=== PATIENT | male | born 1945 | race Two or more races ===

== ENCOUNTER 2017-12-03 10:17 | Inpatient (IN) | payer MEDICARE, MEDICAID ==
[~2017-12-03] VITALS: Ht 175.3 cm; Wt 61.5 kg
[~2017-12-03 10:17] MED LIST: ASPI-231 PO; BENA10TA9 PO; CLOP75TA41 PO; HYDR-2595 PO; METO25TA62 PO; ROSU5TAB5 PO
[2017-12-03 11:43] LABS: Basophils # (auto) 0 uL; Eosinophils # (auto) 0 uL; Eosinophils % (auto) 0.1 % (0.0-7.0); Hematocrit 24.6 % (41.0-53.0); Lymphocytes # (auto) 0.3 uL; Red Blood Cells 2.33 10^6/uL (4.5-5.90); White Blood Cell 8.4 10^3/uL (4.4-10.8)
[2017-12-03 11:44] LABS: Basophils % (auto) 0.2 % (0.0-2.0); Hemoglobin 8.2 g/dL (13.5-17.5); Lymphocytes % (auto) 3.1 % (10.0-50.0); Mean Corpuscular Hemoglobin 35.1 pg (28.0-32.0); Mean Corpuscular Hgb Conc. 33.2 g/dL (32.0-36.0); Mean Corpuscular Volume 105.6 fL (80.0-100.0); Monocytes # (auto) 0.4 uL; Monocytes % (auto) 5.2 % (0.0-12.0); Neutrophils # (auto) 7.7 uL; Neutrophils % (auto) 91.4 % (37.0-80.0); Nucleated Red Blood Cells % 0.1 %; Platelet Count (auto) 182 10^3/uL (140-450); Red Cell Distribution Width 18.3 % (11.8-14.3)
[2017-12-03 12:02] LABS: INR 1.05 (0.9-1.15); Partial Thromboplastin Time 30.3 sec (22.64-33.71); Prothrombin Time 11.4 sec (9.37-12.3)
[2017-12-03 12:13] LABS: Albumin 2.3 g/dL (3.4-5.0); BUN/Creatinine Ratio 20.3; Bilirubin, Total 0.6 mg/dL (0.2-1.0); Calcium 8.3 mg/dL (8.5-10.1); Potassium 3.7 mmol/L (3.5-5.1); Total Protein 6.4 g/dL (6.4-8.2)
[2017-12-03] MEDS ORDERED: MORPHINE SULF INJ 2 MG/ML SYRINGE 1ML IV ONE (14:45)
[2017-12-03] MEDS ORDERED: ONDANSETRON HCL 4 MG/2 ML VIAL IV ONE (14:45)
[2017-12-03] MEDS ORDERED: MORPHINE SULF INJ 2 MG/ML SYRINGE 1ML IV PRN (17:00)
[2017-12-03] MEDS ORDERED: NITROGLYCERIN 0.4 MG SL TAB SL PRN (17:00)
[2017-12-03] MEDS ORDERED: EPOETIN ALFA 10,000 UNIT/1 ML VIAL SC ONE (17:30)
[2017-12-03] MEDS: HYDROcodone-ACET 10/325MG TAB PO PRN ×2 (17:50→23:50)
[2017-12-03 17:57] LABS: Urine Bacteria NONE SEEN /hpf (None Seen); Urine Blood 1+ /uL (Negative); Urine Mucus FEW (None Seen); Urine Specific Gravity 1.028 (1.001-1.035); Urine WBC 1 /hpf (0 - 3)
[2017-12-03] MEDS: BOOST 8 ounces PO SCH (18:30)
[2017-12-03 22:00] VITALS: BP 102/56
[2017-12-03] MEDS: MEGESTROL ACETATE 20 MG TAB PO SCH (22:11)
[2017-12-03] MEDS: ATORVASTATIN 20 MG TAB PO SCH (22:11)
[2017-12-03 22:55] VITALS: BP 108/56
[2017-12-03 23:05] VITALS: BP 114/64
[2017-12-03 23:19] VITALS: BP 114/64
[2017-12-03 23:58] VITALS: BP 117/54
[2017-12-04] VITALS (15 sets, daily range): BP systolic 98–124; BP diastolic 51–78
[2017-12-04] MEDS: HYDROcodone-ACET 10/325MG TAB PO PRN ×2 (05:53→17:12)
[2017-12-04 08:31] LABS: Basophils # (auto) 0 uL; Basophils % (auto) 0.4 % (0.0-2.0); Eosinophils # (auto) 0 uL; Eosinophils % (auto) 0.5 % (0.0-7.0); Hemoglobin 8.3 g/dL (13.5-17.5); Lymphocytes # (auto) 0.3 uL; Monocytes # (auto) 0.3 uL; Monocytes % (auto) 3.9 % (0.0-12.0)
[2017-12-04 08:33] LABS: Lymphocytes % (auto) 4.3 % (10.0-50.0); Mean Corpuscular Hemoglobin 34.3 pg (28.0-32.0); Mean Corpuscular Hgb Conc. 33.2 g/dL (32.0-36.0); Mean Corpuscular Volume 103.5 fL (80.0-100.0); Neutrophils # (auto) 7.3 uL; Neutrophils % (auto) 90.9 % (37.0-80.0); Platelet Count (auto) 182 10^3/uL (140-450); Red Blood Cells 2.42 10^6/uL (4.5-5.90); White Blood Cell 8.1 10^3/uL (4.4-10.8)
[2017-12-04 08:43] LABS: Red Cell Distribution Width 20.1 % (11.8-14.3)
[2017-12-04] MEDS: BOOST 8 ounces PO SCH ×3 (09:04→18:00)
[2017-12-04] MEDS: MEGESTROL ACETATE 20 MG TAB PO SCH ×2 (09:31→22:20)
[2017-12-04] MEDS: ASPirin-EC 81 mg tab PO SCH (09:31)
[2017-12-04] MEDS: CLOPIDOGREL BISULFATE 75 MG TAB PO SCH (09:31)
[2017-12-04] MEDS: METOPROLOL SUCCINATE XL 50 MG TAB PO SCH (09:32)
[2017-12-04] MEDS: BENAZEPRIL HCL 10 MG TAB PO SCH (10:00)
[2017-12-04] MEDS: HYDROmorphone HCL 2 MG/ML VL IV PRN ×4 (10:41→22:50)
[2017-12-04] MEDS: IPRATROPIUM BROM 0.5 MG/2.5ML INH SOL NEB SCH ×2 (16:25→19:30)
[2017-12-04] MEDS: ATORVASTATIN 20 MG TAB PO SCH (22:21)
[2017-12-05] MEDS: HYDROmorphone HCL 2 MG/ML VL IV PRN ×4 (04:35→18:35)
[2017-12-05 04:40] VITALS: BP 123/61
[2017-12-05 05:32] LABS: Basophils # (auto) 0 uL; Basophils % (auto) 0.1 % (0.0-2.0); Eosinophils # (auto) 0 uL; Eosinophils % (auto) 0.2 % (0.0-7.0); Hematocrit 28.9 % (41.0-53.0); Hemoglobin 9.7 g/dL (13.5-17.5); Lymphocytes # (auto) 0.3 uL; Lymphocytes % (auto) 2.7 % (10.0-50.0); Mean Corpuscular Hemoglobin 33.4 pg (28.0-32.0); Mean Corpuscular Hgb Conc. 33.4 g/dL (32.0-36.0); Mean Corpuscular Volume 99.9 fL (80.0-100.0); Monocytes # (auto) 0.4 uL; Monocytes % (auto) 4.2 % (0.0-12.0); Neutrophils # (auto) 8.8 uL; Neutrophils % (auto) 92.8 % (37.0-80.0); Nucleated Red Blood Cells % 0.1 %; Platelet Count (auto) 198 10^3/uL (140-450); Red Blood Cells 2.89 10^6/uL (4.5-5.90); Red Cell Distribution Width 19.9 % (11.8-14.3); White Blood Cell 9.5 10^3/uL (4.4-10.8)
[2017-12-05 05:41] LABS: INR 1.05 (0.9-1.15); Prothrombin Time 11.5 sec (9.37-12.3)
[2017-12-05] MEDS: HYDROcodone-ACET 10/325MG TAB PO PRN ×2 (05:56→22:06)
[2017-12-05 06:01] LABS: BUN/Creatinine Ratio 36.8; Calcium 8.8 mg/dL (8.5-10.1); Potassium 3.4 mmol/L (3.5-5.1)
[2017-12-05] MEDS: IPRATROPIUM BROM 0.5 MG/2.5ML INH SOL NEB SCH ×2 (06:43→19:03)
[2017-12-05] MEDS: BOOST 8 ounces PO SCH ×3 (08:00→18:00)
[2017-12-05 09:00] VITALS: BP 114/65
[2017-12-05] MEDS: ASPirin-EC 81 mg tab PO SCH (10:37)
[2017-12-05] MEDS: MEGESTROL ACETATE 20 MG TAB PO SCH ×2 (10:37→22:05)
[2017-12-05] MEDS: CLOPIDOGREL BISULFATE 75 MG TAB PO SCH (10:37)
[2017-12-05] MEDS: BENAZEPRIL HCL 10 MG TAB PO SCH (10:38)
[2017-12-05] MEDS: METOPROLOL SUCCINATE XL 50 MG TAB PO SCH (10:39)
[2017-12-05] MEDS ORDERED: IOHEXOL 350 MG/ML 100ML IJ ONE (12:47)
[2017-12-05] MEDS ORDERED: LIDOCAINE 2%HCL (LOCAL ANESTH.) INJ 20ML MDV ONE (12:47)
[2017-12-05 13:00] VITALS: BP 106/56
[2017-12-05 13:18] VITALS: BP 102/57
[2017-12-05] MEDS ORDERED: ANGIOMAX 250 MG VIAL IV ONE (13:54)
[2017-12-05] MEDS ORDERED: fentaNYL CITRATE 100 MCG/2 ML VL ONE (13:54)
[2017-12-05] MEDS ORDERED: SODIUM CHL 0.9% 0 ML ONE (13:55)
[2017-12-05] MEDS ORDERED: MIDAZOLAM HCL 1MG/1ML-2 ML VIAL ONE (13:55)
[2017-12-05] MEDS ORDERED: FUROSEMIDE 40 MG/4 ML VIAL ONE (14:22)
[2017-12-05 20:00] VITALS: BP 116/63
[2017-12-05 22:00] VITALS: BP 116/62
[2017-12-05] MEDS: ATORVASTATIN 20 MG TAB PO SCH (22:05)
[2017-12-06] MEDS: HYDROcodone-ACET 10/325MG TAB PO PRN ×3 (04:09→18:50)
[2017-12-06 05:00] VITALS: BP 98/71
[2017-12-06] MEDS: IPRATROPIUM BROM 0.5 MG/2.5ML INH SOL NEB SCH ×3 (07:01→22:14)
[2017-12-06] MEDS: BOOST 8 ounces PO SCH ×3 (08:05→18:00)
[2017-12-06] MEDS: HYDROmorphone HCL 2 MG/ML VL IV PRN ×4 (08:05→20:08)
[2017-12-06 09:00] VITALS: BP 104/55
[2017-12-06] MEDS: BENAZEPRIL HCL 10 MG TAB PO SCH (10:00)
[2017-12-06] MEDS: ASPirin-EC 81 mg tab PO SCH (10:09)
[2017-12-06] MEDS: CLOPIDOGREL BISULFATE 75 MG TAB PO SCH (10:10)
[2017-12-06] MEDS: MEGESTROL ACETATE 20 MG TAB PO SCH ×2 (10:10→22:49)
[2017-12-06] MEDS: METOPROLOL SUCCINATE XL 50 MG TAB PO SCH (10:10)
[2017-12-06 15:28] LABS: BUN/Creatinine Ratio 48.4; Calcium 8.9 mg/dL (8.5-10.1); Potassium 3.4 mmol/L (3.5-5.1)
[2017-12-06 16:05] LABS: Basophils # (auto) 0 uL; Basophils % (auto) 0.1 % (0.0-2.0); Eosinophils # (auto) 0 uL; Eosinophils % (auto) 0.5 % (0.0-7.0); Hematocrit 28.9 % (41.0-53.0); Hemoglobin 9.7 g/dL (13.5-17.5); Lymphocytes # (auto) 0.2 uL; Lymphocytes % (auto) 2.8 % (10.0-50.0); Mean Corpuscular Hemoglobin 33.6 pg (28.0-32.0); Mean Corpuscular Hgb Conc. 33.4 g/dL (32.0-36.0); Mean Corpuscular Volume 100.6 fL (80.0-100.0); Monocytes # (auto) 0.3 uL; Monocytes % (auto) 3.9 % (0.0-12.0); Neutrophils % (auto) 92.7 % (37.0-80.0); Platelet Count (auto) 214 10^3/uL (140-450); Red Blood Cells 2.87 10^6/uL (4.5-5.90); Red Cell Distribution Width 19.9 % (11.8-14.3); White Blood Cell 8.6 10^3/uL (4.4-10.8)
[2017-12-06 17:00] VITALS: BP 129/67
[2017-12-06 21:21] VITALS: BP 113/65
[2017-12-06] MEDS: ASCORBIC ACID 500 MG TAB PO SCH (22:49)
[2017-12-06] MEDS: ATORVASTATIN 20 MG TAB PO SCH (22:49)
[2017-12-07] VITALS (7 sets, daily range): BP systolic 101–123; BP diastolic 55–71
[2017-12-07] MEDS: HYDROmorphone HCL 2 MG/ML VL IV PRN ×9 (00:11→23:37)
[2017-12-07] MEDS: HYDROcodone-ACET 10/325MG TAB PO PRN ×3 (00:55→21:56)
[2017-12-07] MEDS ORDERED: methylPREDNISolone SOD SUCC 40 MG/ML VL ONE (00:56)
[2017-12-07] MEDS ORDERED: cefTRIAXone 1GM/10ml IVPUSH 10 ML IV ONE (01:00)
[2017-12-07] MEDS ORDERED: VANCOMYCIN 1GM/250ML 250 ML IV ONE (01:00)
[2017-12-07] MEDS ORDERED: methylPREDNISolone SOD SUCC 40 MG/ML VL IV ONE (01:00)
[2017-12-07] MEDS: IPRATROPIUM BROM 0.5 MG/2.5ML INH SOL NEB SCH ×3 (07:16→22:24)
[2017-12-07] MEDS: PRO-STAT 64 30ML PO SCH ×2 (08:20→17:53)
[2017-12-07] MEDS: BOOST 8 ounces PO SCH ×3 (08:20→17:53)
[2017-12-07] MEDS: MEGESTROL ACETATE 20 MG TAB PO SCH ×2 (09:43→21:55)
[2017-12-07] MEDS: CLOPIDOGREL BISULFATE 75 MG TAB PO SCH (09:44)
[2017-12-07] MEDS: METOPROLOL SUCCINATE XL 50 MG TAB PO SCH (09:44)
[2017-12-07] MEDS: MULTIPLE VITAMINS W/ MINERALS TAB PO SCH (09:44)
[2017-12-07] MEDS: BENAZEPRIL HCL 10 MG TAB PO SCH (09:45)
[2017-12-07] MEDS: ASCORBIC ACID 500 MG TAB PO SCH ×2 (09:45→21:55)
[2017-12-07] MEDS: ASPirin-EC 81 mg tab PO SCH (09:45)
[2017-12-07] MEDS ORDERED: VANCOMYCIN PER PHARMACY 0 MG IV SCH (15:00)
[2017-12-07] MEDS: methylPREDNISolone SOD SUCC 40 MG/ML VL IV SCH (21:55)
[2017-12-07] MEDS: cefTRIAXone 1GM/10ml IVPUSH 10 ML IV SCH (21:55)
[2017-12-07] MEDS: ATORVASTATIN 20 MG TAB PO SCH (21:55)
[2017-12-08] MEDS: VANCOMYCIN 1GM/250ML 250 ML IV SCH (01:12)
[2017-12-08] MEDS: HYDROmorphone HCL 2 MG/ML VL IV PRN ×12 (01:44→23:31)
[2017-12-08 05:38] VITALS: BP 133/74
[2017-12-08 05:38] LABS: Basophils # (auto) 0 uL; Eosinophils # (auto) 0 uL; Hemoglobin 8.9 g/dL (13.5-17.5); Lymphocytes # (auto) 0.2 uL; Lymphocytes % (auto) 2.6 % (10.0-50.0); Mean Corpuscular Hemoglobin 33.3 pg (28.0-32.0); Mean Corpuscular Volume 100.8 fL (80.0-100.0); Monocytes # (auto) 0.3 uL; Monocytes % (auto) 3.7 % (0.0-12.0); Neutrophils # (auto) 7.6 uL; Neutrophils % (auto) 93.7 % (37.0-80.0); Nucleated Red Blood Cells % 0.1 %; Platelet Count (auto) 211 10^3/uL (140-450); Red Blood Cells 2.68 10^6/uL (4.5-5.90); Red Cell Distribution Width 19.7 % (11.8-14.3); White Blood Cell 8.1 10^3/uL (4.4-10.8)
[2017-12-08] MEDS: methylPREDNISolone SOD SUCC 40 MG/ML VL IV SCH ×3 (05:51→22:36)
[2017-12-08 05:55] LABS: BUN/Creatinine Ratio 47.6; Calcium 9.2 mg/dL (8.5-10.1)
[2017-12-08] MEDS: IPRATROPIUM BROM 0.5 MG/2.5ML INH SOL NEB SCH ×3 (06:37→21:17)
[2017-12-08] MEDS: HYDROcodone-ACET 10/325MG TAB PO PRN ×3 (07:47→18:50)
[2017-12-08] MEDS: BOOST 8 ounces PO SCH ×3 (08:00→18:50)
[2017-12-08 09:00] VITALS: BP 129/72
[2017-12-08] MEDS: PRO-STAT 64 30ML PO SCH ×2 (09:19→18:50)
[2017-12-08] MEDS: MEGESTROL ACETATE 20 MG TAB PO SCH ×2 (10:10→22:36)
[2017-12-08] MEDS: ASPirin-EC 81 mg tab PO SCH (10:10)
[2017-12-08] MEDS: CLOPIDOGREL BISULFATE 75 MG TAB PO SCH (10:10)
[2017-12-08] MEDS: ASCORBIC ACID 500 MG TAB PO SCH ×2 (10:10→22:37)
[2017-12-08] MEDS: METOPROLOL SUCCINATE XL 50 MG TAB PO SCH (10:10)
[2017-12-08] MEDS: MULTIPLE VITAMINS W/ MINERALS TAB PO SCH (10:11)
[2017-12-08] MEDS: BENAZEPRIL HCL 10 MG TAB PO SCH (10:11)
[2017-12-08 10:48] VITALS: BP 129/72
[2017-12-08 13:00] VITALS: BP 119/60
[2017-12-08 17:00] VITALS: BP 117/65
[2017-12-08 22:00] VITALS: BP 117/76
[2017-12-08] MEDS: cefTRIAXone 1GM/10ml IVPUSH 10 ML IV SCH (22:35)
[2017-12-08] MEDS: ATORVASTATIN 20 MG TAB PO SCH (22:36)
[2017-12-09] MEDS: VANCOMYCIN 1GM/250ML 250 ML IV SCH (01:00)
[2017-12-09] MEDS: HYDROmorphone HCL 2 MG/ML VL IV PRN ×10 (01:45→22:28)
[2017-12-09] MEDS: HYDROcodone-ACET 10/325MG TAB PO PRN ×4 (03:09→23:10)
[2017-12-09 05:00] VITALS: BP 134/66
[2017-12-09] MEDS: methylPREDNISolone SOD SUCC 40 MG/ML VL IV SCH ×3 (06:02→21:33)
[2017-12-09] MEDS: IPRATROPIUM BROM 0.5 MG/2.5ML INH SOL NEB SCH ×3 (06:57→22:18)
[2017-12-09] MEDS: PRO-STAT 64 30ML PO SCH ×2 (08:49→18:40)
[2017-12-09] MEDS: BOOST 8 ounces PO SCH ×3 (08:50→18:00)
[2017-12-09 09:00] VITALS: BP 145/86
[2017-12-09] MEDS: MEGESTROL ACETATE 20 MG TAB PO SCH ×2 (10:21→21:32)
[2017-12-09] MEDS: CLOPIDOGREL BISULFATE 75 MG TAB PO SCH (10:21)
[2017-12-09] MEDS: MULTIPLE VITAMINS W/ MINERALS TAB PO SCH (10:22)
[2017-12-09] MEDS: ASCORBIC ACID 500 MG TAB PO SCH ×2 (10:22→21:31)
[2017-12-09] MEDS: ASPirin-EC 81 mg tab PO SCH (10:23)
[2017-12-09] MEDS: BENAZEPRIL HCL 10 MG TAB PO SCH (10:23)
[2017-12-09] MEDS: METOPROLOL SUCCINATE XL 50 MG TAB PO SCH (10:23)
[2017-12-09] MEDS ORDERED: EPOETIN ALFA 10,000 UNIT/1 ML VIAL SC ONE (12:15)
[2017-12-09] MEDS ORDERED: POTASSIUM CHL 20 Meq TABLET PO ONE (12:15)
[2017-12-09] MEDS ORDERED: FUROSEMIDE 40 MG/4 ML VIAL IV ONE (12:15)
[2017-12-09] MEDS ORDERED: TESTOSTERONE CYPIONATE 200 MG/ML 1ML VIAL IM ONE (12:15)
[2017-12-09] MEDS ORDERED: FLUCONAZOLE 100 MG TAB PO SCH (12:48)
[2017-12-09 13:00] VITALS: BP 134/71
[2017-12-09 13:41] LABS: Basophils # (auto) 0 uL; Basophils % (auto) 0.1 % (0.0-2.0); Eosinophils # (auto) 0 uL; Hematocrit 29.7 % (41.0-53.0); Hemoglobin 9.8 g/dL (13.5-17.5); Lymphocytes # (auto) 0.3 uL; Lymphocytes % (auto) 2.5 % (10.0-50.0); Mean Corpuscular Hemoglobin 33.1 pg (28.0-32.0); Mean Corpuscular Hgb Conc. 32.8 g/dL (32.0-36.0); Mean Corpuscular Volume 100.9 fL (80.0-100.0); Monocytes # (auto) 0.5 uL; Monocytes % (auto) 4.4 % (0.0-12.0); Neutrophils # (auto) 10.2 uL; Platelet Count (auto) 238 10^3/uL (140-450); Red Blood Cells 2.94 10^6/uL (4.5-5.90); Red Cell Distribution Width 19.4 % (11.8-14.3)
[2017-12-09 13:58] LABS: Albumin 2.1 g/dL (3.4-5.0); Bilirubin, Total 0.3 mg/dL (0.2-1.0); Calcium 8.7 mg/dL (8.5-10.1); Potassium 3.9 mmol/L (3.5-5.1); Total Protein 6.5 g/dL (6.4-8.2)
[2017-12-09 15:47] VITALS: BP 145/86
[2017-12-09 17:00] VITALS: BP 132/67
[2017-12-09 21:24] VITALS: BP 132/79
[2017-12-09] MEDS: ATORVASTATIN 20 MG TAB PO SCH (21:31)
[2017-12-09] MEDS: cefTRIAXone 1GM/10ml IVPUSH 10 ML IV SCH (21:33)
[2017-12-10] MEDS: HYDROmorphone HCL 2 MG/ML VL IV PRN ×3 (00:39→05:11)
[2017-12-10] MEDS: VANCOMYCIN 1GM/250ML 250 ML IV SCH (02:04)
[2017-12-10 05:00] VITALS: BP 125/84
[2017-12-10] MEDS: methylPREDNISolone SOD SUCC 40 MG/ML VL IV SCH (05:29)
[2017-12-10 05:45] LABS: Basophils # (auto) 0 uL; Basophils % (auto) 0.1 % (0.0-2.0); Eosinophils # (auto) 0 uL; Hematocrit 31.4 % (41.0-53.0); Hemoglobin 10.3 g/dL (13.5-17.5); Lymphocytes # (auto) 0.3 uL; Lymphocytes % (auto) 3.1 % (10.0-50.0); Mean Corpuscular Hemoglobin 33.1 pg (28.0-32.0); Mean Corpuscular Hgb Conc. 32.8 g/dL (32.0-36.0); Monocytes # (auto) 0.4 uL; Monocytes % (auto) 3.6 % (0.0-12.0); Neutrophils # (auto) 10.1 uL; Neutrophils % (auto) 93.2 % (37.0-80.0); Platelet Count (auto) 249 10^3/uL (140-450); Red Blood Cells 3.11 10^6/uL (4.5-5.90); Red Cell Distribution Width 19.4 % (11.8-14.3); White Blood Cell 10.8 10^3/uL (4.4-10.8)
[2017-12-10 06:00] LABS: BUN/Creatinine Ratio 44.4; Potassium 4.6 mmol/L (3.5-5.1)
[2017-12-10] MEDS: IPRATROPIUM BROM 0.5 MG/2.5ML INH SOL NEB SCH (06:45)
[2017-12-10] MEDS: PRO-STAT 64 30ML PO SCH (08:00)
[2017-12-10] MEDS: BOOST 8 ounces PO SCH (08:00)
[2017-12-10] MEDS: HYDROcodone-ACET 10/325MG TAB PO PRN (08:10)
== END 2017-12-10 08:15 | disposition home or self-care (01) | DRG 280 ==
LOC: EDUNIT# 10:17 → ER 10:17 → EDBD 10:17 → TELE 10:18 → SUATTDRO 16:49 → TELE-WESTW 20:35
PROVIDERS: ADMIT Internal Medicine Cardiovascular Disease; ATTEND Internal Medicine Cardiovascular Disease
PROC: 30233N1 Transfusion of Nonautologous Red Blood Cells into Peripheral Vein, Percutaneous Approach (ICD-10-PCS; 2017-12-03)
PROC: 4A023N7 Measurement of Cardiac Sampling and Pressure, Left Heart, Percutaneous Approach (ICD-10-PCS; principal; 2017-12-05)
PROC: B2111ZZ Fluoroscopy of Multiple Coronary Arteries using Low Osmolar Contrast (ICD-10-PCS; 2017-12-05)
PROC: B2151ZZ Fluoroscopy of Left Heart using Low Osmolar Contrast (ICD-10-PCS; 2017-12-05)
PROC: B41C1ZZ Fluoroscopy of Pelvic Arteries using Low Osmolar Contrast (ICD-10-PCS; 2017-12-05)
PROC: 0W9G3ZZ Drainage of Peritoneal Cavity, Percutaneous Approach (ICD-10-PCS; 2017-12-05)
DX: I21.4 Non-ST elevation (NSTEMI) myocardial infarction (principal); J96.90 Respiratory failure, unspecified, unspecified whether with hypoxia or hypercapnia; E43 Unspecified severe protein-calorie malnutrition; J90 Pleural effusion, not elsewhere classified; C34.90 Malignant neoplasm of unspecified part of unspecified bronchus or lung; D63.8 Anemia in other chronic diseases classified elsewhere; I50.42 Chronic combined systolic (congestive) and diastolic (congestive) heart failure; I11.0 Hypertensive heart disease with heart failure; R64 Cachexia; J44.9 Chronic obstructive pulmonary disease, unspecified; F17.210 Nicotine dependence, cigarettes, uncomplicated; I25.10 Atherosclerotic heart disease of native coronary artery without angina pectoris; Z68.20 Body mass index [BMI] 20.0-20.9, adult; Z79.82 Long term (current) use of aspirin; Z86.79 Personal history of other diseases of the circulatory system; Z92.21 Personal history of antineoplastic chemotherapy; Z95.5 Presence of coronary angioplasty implant and graft; Z95.828 Presence of other vascular implants and grafts; Z71.3 Dietary counseling and surveillance
CPT/HCPCS: 32555; 93458; 96374; 96375; 99285; G0278; 36415; 36600; 71045; 76942; 80048; 80053; 80202; 81001; 82805; 83735; 83880; 84484; 85025; 85610; 85730; 86850; 86900; 86901; 86920; 87205; 89051; 93005; 93306; 94640; 99152; J0885; J1071; J2250; J2405